=== PATIENT | female | born 1935 | race Caucasian/White ===

== ENCOUNTER 2016-06-15 07:28 | Day surgery (SDC) | payer MEDICARE, OTHER ==
[2016-06-15] MEDS ORDERED: Lactated Ringers 1,000 ML IV SCH (07:30)
[2016-06-15] MEDS ORDERED: Propofol 200 MG/20 ML SDV IV ONE (09:20)
[2016-06-15 11:07] VITALS: BP 146/65
--- NOTE | 2016-06-16 08:40 | OR ---
DATE OF OPERATION: 06/15/2016 SURGEON: Surinder Renteria MD PREOPERATIVE DIAGNOSIS: Cataract, left eye. POSTOPERATIVE DIAGNOSIS: Cataract, left eye. PROCEDURE: Phacoemulsification of cataract, left eye, with placement of an Robertson, model ZCB00, 24.5 diopter, foldable, posterior chamber intraocular lens. EXTRACTION MACHINE OPERATOR: None. DESCRIPTION OF PROCEDURE: Peribulbar anesthetic was performed using a mixture of 2% lidocaine with Wydase. The patient was prepped and draped in the usual fashion. A 3 mm fornix based conjunctival flap was performed at the 10 o'clock position. Hemostasis was obtained using diathermy, and a 2.8 mm grooved near clear corneal incision was then made. A stab incision was made into the anterior chamber at the 12 o'clock position and a second stab wound incision was made underlying the grooved near clear corneal incision. Viscoat was instilled into the anterior chamber, and a continuous tear capsulotomy was performed. Hydrodissection was accomplished with balanced salt solution, and the nucleus was removed in a divide and conquer fashion. The remaining cortical material was removed with the irrigation and aspiration unit. Viscoat was instilled into the anterior chamber, and an Robertson, model ZCB00, 24.5 diopter, foldable, posterior chamber intraocular lens was placed into the capsular bag, the haptics being positioned at the 1 and 7 o'clock positions. The residual Viscoat was removed from the anterior chamber and the anterior chamber reformed with balanced salt solution. The wound was checked and noted to be watertight. The conjunctiva was secured in its original position with diathermy. Alphagan and Maxitrol Ointment were then placed into the patient's eye. The patient tolerated the procedure well and it was without complication. Elapsed phacoemulsification time was 41.6 seconds. Postoperative instructions as related to activities as well as medications were reviewed with the patient. The patient was instructed to return to see me on the day following surgery for the first postoperative check. The patient was also instructed to contact me prior to that time if the patient were to have any problems. /[id number] DEG/MODL CC: JONATHAN Gonsales FNP MTDD
== END 2016-06-15 11:20 | disposition home or self-care (01) ==
LOC: FB.SDS 07:28
PROVIDERS: ATTEND Ophthalmology
DX: H26.9 Unspecified cataract (principal); E11.42 Type 2 diabetes mellitus with diabetic polyneuropathy; I10 Essential (primary) hypertension; E78.5 Hyperlipidemia, unspecified; E87.1 Hypo-osmolality and hyponatremia; Z88.0 Allergy status to penicillin; Z88.1 Allergy status to other antibiotic agents; Z79.4 Long term (current) use of insulin; Z88.2 Allergy status to sulfonamides; Z79.82 Long term (current) use of aspirin; Z79.899 Other long term (current) drug therapy
CPT/HCPCS: 00142; 66984; 82962; A4217; C1780; J2704; J7120

== ENCOUNTER 2016-07-13 07:51 | Day surgery (SDC) | payer MEDICARE, OTHER ==
[2016-07-13] MEDS ORDERED: Lactated Ringers 1,000 ML IV SCH (08:00)
[2016-07-13] MEDS ORDERED: Propofol 200 MG/20 ML SDV IV ONE (10:00)
[2016-07-13 11:12] VITALS: BP 150/77
--- NOTE | 2016-07-14 08:50 | OR ---
DATE OF OPERATION: 07/13/2016 SURGEON: Surinder Renteria MD PREOPERATIVE DIAGNOSIS: Cataract right eye. POSTOPERATIVE DIAGNOSIS: Cataract right eye. OPERATION PERFORMED: Phacoemulsification of cataract right eye with placement of an Robertson, model ZCB00, 24.5 diopter, foldable, posterior chamber intraocular lens. HOT TAR ROOFER HELPER: None. DESCRIPTION OF PROCEDURE: Peribulbar anesthetic was performed using a mixture of 2% lidocaine with Wydase. The patient was prepped and draped in the usual fashion. A 3 mm fornix based conjunctival flap was performed at the 10 o'clock position. Hemostasis was obtained using diathermy, and a 2.8 mm grooved near clear corneal incision was then made. A stab incision was made into the anterior chamber at the 12 o'clock position and a second stab wound incision was made underlying the grooved near clear corneal incision. Viscoat was instilled into the anterior chamber, and a continuous tear capsulotomy was performed. Hydrodissection was accomplished with balanced salt solution, and the nucleus was removed in a divide and conquer fashion. The remaining cortical material was removed with the irrigation and aspiration unit. Viscoat was instilled into the anterior chamber, and an Robertson, model ZCB00, 24.5 diopter, foldable, posterior chamber intraocular lens was placed into the capsular bag, the haptics being positioned at the 1 and 7 o'clock positions. The residual Viscoat was removed from the anterior chamber and the anterior chamber reformed with balanced salt solution. The wound was checked and noted to be watertight. The conjunctiva was secured in its original position with diathermy. Alphagan and Maxitrol Ointment were then placed into the patient's eye. The patient tolerated the procedure well and it was without complication. Elapsed phacoemulsification time was 26.7 seconds. Postoperative instructions as related to activities as well as medications were reviewed with the patient. The patient was instructed to return to see me on the day following surgery for the first postoperative check. The patient was also instructed to contact me prior to that time if she were to have any problems. /[id number] DEG/MODL CC: JONATHAN LOPEZ FNP MTDD
== END 2016-07-13 11:45 | disposition home or self-care (01) ==
LOC: FB.SDS 07:51
PROVIDERS: ATTEND Ophthalmology
DX: H26.9 Unspecified cataract (principal); Z88.0 Allergy status to penicillin; Z88.1 Allergy status to other antibiotic agents; Z88.2 Allergy status to sulfonamides; I10 Essential (primary) hypertension; E78.5 Hyperlipidemia, unspecified; E87.1 Hypo-osmolality and hyponatremia; Z98.890 Other specified postprocedural states; Z79.899 Other long term (current) drug therapy; Z79.82 Long term (current) use of aspirin; E11.42 Type 2 diabetes mellitus with diabetic polyneuropathy; E11.319 Type 2 diabetes mellitus with unspecified diabetic retinopathy without macular edema
CPT/HCPCS: 00142; 66984; 82962; A4217; C1780; J2704

== ENCOUNTER 2021-07-25 07:08 | Observation (INO) | payer MEDICARE, OTHER ==
[2021-07-25] MEDS ORDERED: Sodium Chloride 0.9% 1,000 ML IV ONE (08:36)
[2021-07-25] MEDS: Sodium Chloride 0.9% 1,000 ML IV SCH ×2 (11:30→22:00)
[2021-07-25] MEDS: Enoxaparin 30 MG/0.3 ML Syringe SUBCUT SCH (15:41)
[2021-07-25] MEDS: Sodium Chloride 1 GM Tab PO SCH (20:59)
[2021-07-25] MEDS ORDERED: Gabapentin 600 MG Tab PO SCH ×2 (21:00)
[2021-07-26] MEDS: Enoxaparin 30 MG/0.3 ML Syringe SUBCUT SCH (08:00)
[2021-07-26] MEDS: Sodium Chloride 1 GM Tab PO SCH (08:00)
[2021-07-26] MEDS ORDERED: Ezetimibe 10 MG Tab PO SCH (09:00)
[2021-07-26] MEDS ORDERED: Tolterodine 4 MG Cap.ER PO SCH (09:00)
[2021-07-26] MEDS ORDERED: Lisinopril 5 MG Tab PO SCH (09:00)
[2021-07-26] MEDS ORDERED: Simvastatin 20 MG Tab PO SCH (09:00)
[2021-07-26 14:51] VITALS: BP 181/64; PULSE 75
== END 2021-07-26 12:15 | disposition home or self-care (01) ==
LOC: FB.ED 07:08 → INTOOBSV 13:09 → FB.MS 13:09
PROVIDERS: ADMIT Family Medicine; ATTEND Family Medicine
DX: E87.1 Hypo-osmolality and hyponatremia (principal); I12.9 Hypertensive chronic kidney disease with stage 1 through stage 4 chronic kidney disease, or unspecified chronic kidney disease; N17.9 Acute kidney failure, unspecified; E11.22 Type 2 diabetes mellitus with diabetic chronic kidney disease; E11.649 Type 2 diabetes mellitus with hypoglycemia without coma; E11.43 Type 2 diabetes mellitus with diabetic autonomic (poly)neuropathy; E11.40 Type 2 diabetes mellitus with diabetic neuropathy, unspecified; E11.69 Type 2 diabetes mellitus with other specified complication; K31.84 Gastroparesis; N18.4 Chronic kidney disease, stage 4 (severe); E66.9 Obesity, unspecified; E78.00 Pure hypercholesterolemia, unspecified; Z51.5 Encounter for palliative care; Z88.0 Allergy status to penicillin; Z88.2 Allergy status to sulfonamides; Z79.84 Long term (current) use of oral hypoglycemic drugs; Z79.899 Other long term (current) drug therapy; Z20.822 Contact with and (suspected) exposure to COVID-19
CPT/HCPCS: 36415; 80048; 80053; 82947; 85025; 96372; 99284; 99285; A9270-GY; G0378; J1650; J7030; U0002

== ENCOUNTER 2022-06-22 07:44 | Day surgery (SDC) | payer MEDICARE, OTHER ==
[2022-06-22] MEDS ORDERED: Sodium Chloride 0.9% 10 ML Syringe FLUSH PRN (07:45)
[2022-06-22] MEDS ORDERED: Lactated Ringers 1,000 ML IV SCH (07:45)
[2022-06-22] MEDS ORDERED: Lidocaine 2% 5 ML SDV INJECT ONE (07:45)
[2022-06-22] MEDS ORDERED: Propofol 200 MG/20 ML SDV IV ONE (07:45)
[2022-06-22] MEDS ORDERED: Simethicone Drops 40 MG/0.6 ML 30 ML Bottle ONE (09:05)
[2022-06-22 12:30] VITALS: BP 132/56; PULSE 68
== END 2022-06-22 10:52 | disposition home or self-care (01) ==
LOC: FB.SDS 07:44
PROVIDERS: ATTEND Surgery
DX: K59.09 Other constipation (principal); R15.9 Full incontinence of feces; E78.5 Hyperlipidemia, unspecified; I10 Essential (primary) hypertension; E11.319 Type 2 diabetes mellitus with unspecified diabetic retinopathy without macular edema; Z79.899 Other long term (current) drug therapy; Z88.0 Allergy status to penicillin; Z88.1 Allergy status to other antibiotic agents; Z88.2 Allergy status to sulfonamides
CPT/HCPCS: 00811; A9270-GY; J2704; J7120